=== PATIENT | female | born 1950 ===

== ENCOUNTER 2017-10-17 10:20 | Outpatient (CLI) | payer OTHER ==
[~2017-10-17] VITALS: Ht 162.6 cm; Wt 63.5 kg
[2017-10-17] MEDS ORDERED: FLONASE16 GM NASAL (11:28)
[2017-10-17] MEDS ORDERED: ZANTAC150 M3 PO (11:29)
== END 2017-10-17 10:40 | disposition home or self-care (01) ==
LOC: OFIC 805 10:20
DX: R05 Cough (principal); J34.2 Deviated nasal septum; J31.0 Chronic rhinitis; J37.0 Chronic laryngitis

== ENCOUNTER 2017-12-12 08:27 | Outpatient (CLI) | payer OTHER ==
[~2017-12-12 08:27] MED LIST: FLONASE16 GM NASAL; ZANTAC150 M3 PO
== END 2017-12-12 08:36 | disposition home or self-care (01) ==
LOC: SONOGRAMA 08:27
DX: M25.511 Pain in right shoulder (principal)

== ENCOUNTER 2018-01-30 10:05 | Outpatient (CLI) | payer OTHER ==
[~2018-01-30] VITALS: Ht 152.4 cm; Wt 62.6 kg
== END 2018-01-30 10:20 | disposition home or self-care (01) ==
LOC: OFIC 805 10:05
DX: R05 Cough (principal); J34.2 Deviated nasal septum; J37.0 Chronic laryngitis